=== PATIENT | female | born 1970 | race Caucasian/White ===

== ENCOUNTER → 2016-11-29 | Outpatient (CLI) | payer MEDICAID ==
[~2016-11-29] MED LIST: BUPROPION HYDR150 M1 PO; CITALOPRAM20 MG PO; MACROBID 100MG100 MG PO; MELOXICAM15 MG PO; MIRALAX(PO17 GM/1 PA PO; NEURONTIN 300M300 MG PO; NIASPAN500 MG PO; OXYCODONE HCL15 MG PO; TRAMADOL 50MG T50 MG PO
--- NOTE | 2016-12-02 14:44 | RADIOLOGY REPORT PS360 ---
DIG MAMM-SCREEN CAROL W/CAD CAD Screening COMPARISON: Digital mammograms 04/13/2015 and additional problem-solving views 05/24/2015 and analog mammograms 04/29/2013 from [place], [place] INDICATION: There is no personal or family history of breast cancer TECHNIQUE: Standard CC and MLO images were obtained. R2 CAD reviewed. FINDINGS: There is a diffusely dense and heterogenic parenchymal pattern somewhat lessening the sensitivity of mammography. Fibroglandular elements are slightly more prominent right breast than left and this is been noted previously. There is a stable collection of microcalcifications upper outer quadrant right breast in addition to a couple of benign-appearing calcifications inner quadrants of each breast. There is no suspicious lesion and there are no suspicious microcalcifications. IMPRESSION: Stable exam with rather dense heterogenic parenchyma pattern and no suspicious lesion seen recommend yearly follow-up BI-RADS CATEGORY: 2_Benign RECOMMENDED FOLLOWUP: 12M 12 MONTH FOLLOW-UP (A letter has been sent to the patient regarding results of the study.)
== END ==
LOC: RAD 08:27
DX: Z12.31 Encounter for screening mammogram for malignant neoplasm of breast (principal)
CPT/HCPCS: G0202

== ENCOUNTER 2017-07-11 14:33 | Inpatient (IN) | payer MEDICAID ==
[~2017-07-11] VITALS: Ht 152.4 cm; Wt 65.4 kg
[2017-07-11 15:19] LABS: UTC STREP SCREEN NOT DETECTED (NOTDETECTED)
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
[2017-07-11 15:37] LABS: LYMPH # 1.7 K/mm3 (0.7-4.5); LYMPH % 6.9 % (10-50.0)
--- NOTE | 2017-07-11 15:47 | RADIOLOGY REPORT PS360 ---
CHEST(2 VIEWS-NOT PORTABLE) HISTORY: Cough and fever CONGESTION ORDERING PHYSICIAN: MARQUITA VILLEDA APRN PATIENT AGE: 47 years COMPARISON: None available FINDINGS: Unremarkable cardiovascular structures. There is consolidation involving the right lower lobe is nearly consistent with pneumonia. No obvious effusion. The left lung is clear. There is chronic wedge appearing compression changes of L2 with kyphosis as noted on prior MRI of 02/21/2012 with exaggerated thoracic lordosis. IMPRESSION: Right lower lobe pneumonia
[2017-07-11 16:49] VITALS: BP 133/84
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
[2017-07-11 17:11] VITALS: BP 133/84
[2017-07-11] MEDS ORDERED: CLONAZEPAM0.5 M1 PO (17:28)
[2017-07-11 19:26] VITALS: BP 130/77
[2017-07-11 20:00] VITALS: BP 141/92
[2017-07-11 20:25] LABS: NEUTROPHILS 81 % (42-76)
[2017-07-12] VITALS (8 sets, daily range): BP systolic 105–148; BP diastolic 48–92
--- NOTE | 2017-07-12 06:58 | ACUTE CARE PROGRESS NOTE (QUA) ---
Progress Notes Subjective Date 07/12/17 Time 0657 Note Patient reports feeling better. She's not had a fever since she was in the urgent treatment clinic. She is awake and alert. Lungs have rales in the RIGHT lower and midlung best heard posteriorly and laterally. Heart is tachycardic. Continue Rocephin and azithromycin for pneumonia and monitor for fevers. Objective Findings Laboratory Tests 07/11/17 1515: Sodium 132 L, Potassium 3.7, Chloride 98, Carbon Dioxide 23, BUN 15, Creatinine 0.7, Estimated Creat Clear 101, Estimated GFR (MDRD) 90, Glucose 112 H, Calcium 8.6, Total Bilirubin 0.4, AST 24, ALT 25, Alkaline Phosphatase 81, Total Protein 7.8, Albumin 3.1 L, Globulin 4.7 H, Albumin/Globulin Ratio 0.7 L, WBC 24.0 *H , RBC 4.30, Hgb 14.0, Hct 41.5, MCV 96.5, RDW 13.5, Plt Count 357, MPV 8.0, Gran % 88.9 H, Gran # 21.3 H, Total Counted 100, Lymphocytes % 6.9 L, Monocytes % 2.3, Eosinophils % 1.7, Basophils % 0.2, Neutrophils 81 H, Band Neutrophils 17 H, Lymphocytes (Manual) 2 L, Lymphocytes # 1.7, Monocytes # 0.6, Eosinophils # 0.4, Basophils # 0.1, RBC/WBC/PLT Morphology NORMAL, Toxic Granulation SL., Platelet Estimate NORMAL, Rouleaux SL., PUBS MCHC 33.6, MCH 32.5 H, Mycoplasma pneumon IgM NON-REACTIVE 07/11/17 1450: Influenza Type A Ag NOT DETECTED, Influenza Type B Ag NOT DETECTED, Group A Strep Screen NOT DETECTED Microbiology 07/11 1905 BLOOD: Anaerobic Blood Culture - RECD 07/11 1905 BLOOD: Aerobic Blood Culture - RECD 07/11 1840 SPUTUM: Sputum Culture - RES 07/11 1840 SPUTUM: Gram Stain - RES 07/11 145 THROAT: Group A Streptococcus Screen/Cult - COMP 07/11 905 BLOOD: Anaerobic Blood Culture - RECD 07/11 905 BLOOD: Aerobic Blood Culture - RECD Last VS-Temp:98.2 B/P:105/48 Pulse:112 Resp:24 SaO2:88 ROOM AIR Last weight lbs:144 oz:4 K.431 Method:Bed Scales Assessment/Plan Problem List 1. Right lower lobe pneumonia Qualifiers: Pneumonia type: due to unspecified organism Qualified Code: J18.1 - Lobar pneumonia, unspecified organism 2. Fever and chills 3. Leukocytosis Qualifiers: Leukocytosis type: unspecified Qualified Code: D72.829 - Elevated white blood cell count, unspecified 4. Acquired asplenia This inpt stay is expected to cross 2 MNs from start of care Yes at 0658
[2017-07-12 07:04] LABS: LYMPH # 3.1 K/mm3 (0.7-4.5); LYMPH % 13.8 % (10-50.0)
[2017-07-12 07:52] LABS: HEMOGLOBIN 12.3 g/dL (12.2-16.2)
--- NOTE | 2017-07-12 09:21 | PHARMACY CLINIC NOTE ---
Patient Demographics Patient Demographics Admission date: 07/11/17 Date: 07/12/17 Time: 0920 Allergies Coded Allergies: Iodinated Contrast- Oral and IV Dye (Iodinated Contrast Media - IV Dye) (I- ITCHING 01/30/16) HEIGHT- FT: 5 IN: 0.00 K.431 VTE General Information Labs: Laboratory Tests 07/12 07/11 0630 1515 Hematology Hgb (12.2 - 16.2 g/dL) 12.3 14.0 Hct (37.0 - 47.0 %) 36.7 L 41.5 Plt Count (142 - 424 K/mm3) 363 357 Disclaimer The following section includes nursing documentation that has been pulled in for pharmacy review. Patient's VTE score: 4 Patient's VTE Risk: LOW RISK Clinical trial participant? No VTE prophylaxis [id number] VTE prophylaxis ordered? Yes Type of prophylaxis/treatment: ALEXI at 0920
[2017-07-12] MEDS ORDERED: CYCLOBENZAPRINE10 M1 PO (11:20)
[2017-07-12] MEDS ORDERED: BUDEPRION XL150 MG PO (11:21)
[2017-07-12] MEDS ORDERED: VRAYLAR3 MG PO (11:22)
[2017-07-12] MEDS ORDERED: QUETIAPINE FUMA50 M1 PO (11:22)
[2017-07-12] MEDS ORDERED: MONTELUKAST SOD10 MG PO (11:23)
[2017-07-13] VITALS (8 sets, daily range): BP systolic 121–147; BP diastolic 78–86
[2017-07-13 06:10] LABS: HEMOGLOBIN 11.7 g/dL (12.2-16.2); LYMPH # 1.9 K/mm3 (0.7-4.5); LYMPH % 13.9 % (10-50.0)
--- NOTE | 2017-07-13 06:50 | ACUTE CARE PROGRESS NOTE (QUA) ---
Progress Notes Subjective Date 07/13/17 Time 0648 Note Patient has no complaints. She admits to mild dyspnea. Cough is productive of white and yellow sputum. She did spike a fever yesterday afternoon to 103. Antibiotics were changed when she spiked fever. When I entered the room the patient was sleeping her respirations were slightly increased but she is not in any distress. Once awakening respiratory rate slows down. Lungs have rales at the RIGHT base with rhonchi on expiration bilaterally. Heart has regular rate and rhythm. Continue broad-spectrum antibiotic coverage. Should patient spike a temp again blood cultures will be drawn. Objective Findings Last VS-Temp:98.5 B/P:145/86 Pulse:123 Resp:20 SaO2:96 ROOM AIR Last weight lbs:144 oz:4 K.431 Method:Bed Scales Laboratory Tests 07/13/17 0600: WBC 13.9 H, RBC 3.69 L, Hgb 11.7 L, Hct 35.7 L, MCV 96.9, RDW 14.1, Plt Count 370, MPV 8.0, Gran % 80.2 H, Gran # 11.2 H, Lymphocytes % 13.9, Monocytes % 4.9, Eosinophils % 0.7, Basophils % 0.3, Lymphocytes # 1.9, Monocytes # 0.7, Eosinophils # 0.1, Basophils # 0.1, PUBS MCHC 32.9, MCH 31.9 H Assessment/Plan Problem List 1. Right lower lobe pneumonia Qualifiers: Pneumonia type: due to unspecified organism Qualified Code: J18.1 - Lobar pneumonia, unspecified organism 2. Fever and chills 3. Leukocytosis Qualifiers: Leukocytosis type: unspecified Qualified Code: D72.829 - Elevated white blood cell count, unspecified 4. Acquired asplenia Patient condition Stable Plan: continue current care This inpt stay is expected to cross 2 MNs from start of care Yes at 0650
--- NOTE | 2017-07-13 08:58 | CONSULT NOTE ---
Pharmacokinetic Consult Date of consult: 07/13/17 Time of consult: 856 Referring provider: DR. SHETTY Reason for consult: VANCOMYCIN DOSING Allergies: Coded Allergies: Iodinated Contrast- Oral and IV Dye (Iodinated Contrast Media - IV Dye) (I- ITCHING 01/30/16) Home Medications: Reported Medications OXYCODONE HCL (Oxycodone Hcl) 5 MG PO BID Clonazepam (Clonazepam 0.5MG) 0.5 MG PO TID Cyclobenzaprine Hcl 10 MG PO TID #30 TAB Bupropion Hcl (Bupropion XL) 150 MG PO DAILY #30 TAB Quetiapine Fumarate 50 MG PO DAILY #30 TAB Cariprazine Hydrochloride (Vraylar) 3 MG PO DAILY #30 TAB Montelukast Sodium 10 MG PO DAILY #30 TAB Meloxicam (Meloxicam 15MG) 15 MG PO BID NITROFURANTOIN (Nitrofurantoin) 100 MG PO BID POLYETHYLENE GLYCOL (Miralax) 17 GM PO DAILY CITALOPRAM HYDROBROMIDE (Citalopram HBr) 20 MG PO DAILY Height (feet): 5 Height (inches): 0.00 Medical History: CAD? No Angina: No [place]: No Hypertension? No Hyperlipidemia? No CHF? No DVT? No PE? No COPD? No Asthma? No Anemia? No GERD? No Gastric ulcers? Yes GI Bleed? No Hernia? No Thyroid Problems? No Hypothyroidism? No CVA? No Seizures? No Diabetes? No Renal Insuffiency? No UTI? No Stones? No BPH? No GB Disease: No Nephritic Syndrome? No Asplenia? No Arthritis? Yes Migraines? Yes TB? No Anxiety? Yes Depression? Yes Cancer? No Labs: Laboratory Tests 07/13/17 0600: WBC 13.9 H, RBC 3.69 L, Hgb 11.7 L, Hct 35.7 L, MCV 96.9, RDW 14.1, Plt Count 370, MPV 8.0, Gran % 80.2 H, Gran # 11.2 H, Lymphocytes % 13.9, Monocytes % 4.9, Eosinophils % 0.7, Basophils % 0.3, Lymphocytes # 1.9, Monocytes # 0.7, Eosinophils # 0.1, Basophils # 0.1, PUBS MCHC 32.9, MCH 31.9 H Microbiology 07/13 0751 BLOOD: Anaerobic Blood Culture - RECD 07/13 751 BLOOD: Aerobic Blood Culture - RECD 07/13 745 BLOOD: Anaerobic Blood Culture - RECD 07/13 745 BLOOD: Aerobic Blood Culture - RECD Problem List: 1. Right lower lobe pneumonia Plan: BASED ON PATIENT FACTORS, RECOMMEND VANCOMYCIN 1250 MG IV ONCE, FOLLOWED BY VANCOMYCIN 1 GM IV Q12H. WILL OBTAIN VANCOMYCIN TROUGH LEVEL PRIOR TO 4TH DOSE. PHARMACY WILL FOLLOW DAILY AND ADJUST APPROPRIATE. at 0858
--- NOTE | 2017-07-13 10:53 | RADIOLOGY REPORT PS360 ---
CHEST(2 VIEWS-NOT PORTABLE) HISTORY: Low O2 saturation. Follow-up pneumonia PA/LAT CXR ORDERING PHYSICIAN: Armond Chandra MD PATIENT AGE: 47 years COMPARISON: None available FINDINGS: The cardiomediastinal silhouette and pulmonary vascularity are within normal limits. There is diffuse bilateral pneumonia in left upper lobe, left lower lobe, right upper lobe, and right lower lobe. This is most extensive in the right lower lobe. There is a small right pleural effusion. The pneumonia has markedly progressed since the previous exam. There is reversal of the thoracic kyphosis with severe wedging of L2 as before. IMPRESSION: 1. Bilateral pneumonia which is worsened in the interval with small right effusion
[2017-07-13 20:52] LABS: ARTERIAL ABE -20.8 MMOL/L (-2.4-+2.3); ARTERIAL TCO2 6.9 MMOL/L (23-27); OXYGEN 95; PRESSURE SUPPORT 10; VENT RATE 20
--- NOTE | 2017-07-13 21:57 | ACUTE CARE PROGRESS NOTE (QUA) ---
Progress Notes Subjective Date 07/13/17 Time 2152 Note Late this evening patient's condition took a turn for the worse. Patient had developed an oxygen requirement and had been placed on 4 L of oxygen via nasal cannula. She had become tachypneic. Earlier in the day chest x-ray had showed worsening pneumonia and vancomycin had been added to her cefepime and Levaquin. Patient went from nasal cannula oxygen to been placed on facemask. She acutely deteriorated. She was noted to have frothy sputum which was felt to be pulmonary edema by staff and over 500 ML's of fluid was suctioned from the patient. She is [place] been given Lasix as well. Patient was intubated and placed on mechanical ventilation. Patient is lightly sedated. She responds to verbal stimulus. Lungs have bilateral rhonchi. Heart is tachycardic. Abdomen is soft. Patient is stable on mechanical ventilation at this time. I have spoken with her family. I will seek transfer to intensive care unit under the care of the manufacturing sales representative for the patient. Patient is aware. Objective Findings Last VS-Temp:98.5 B/P:142/81 Pulse:105 Resp:18 SaO2:94 ROOM AIR Last weight lbs:144 oz:4 K.431 Method:Bed Scales Laboratory Tests 07/13/172049: ABG pH 7.25 L, ABG pCO2 (Temp Corrct 15.0 L, ABG pO2 (Temp Correct 77.0 L, ABG HCO3 6.4 L, ABG Total CO2 6.9 L, ABG O2 Sat (Calculated) 91.8, ABG Base Excess -20.8 L, Vent Rate 20, Pressure Support 10, Blood Gas Comments L/R 07/13/17 0600: WBC 13.9 H, RBC 3.69 L, Hgb 11.7 L, Hct 35.7 L, MCV 96.9, RDW 14.1, Plt Count 370, MPV 8.0, Gran % 80.2 H, Gran # 11.2 H, Lymphocytes % 13.9, Monocytes % 4.9, Eosinophils % 0.7, Basophils % 0.3, Lymphocytes # 1.9, Monocytes # 0.7, Eosinophils # 0.1, Basophils # 0.1, PUBS MCHC 32.9, MCH 31.9 H Microbiology 07/13 0751 BLOOD: Anaerobic Blood Culture - RECD 07/13 0751 BLOOD: Aerobic Blood Culture - RECD 07/13 0745 BLOOD: Anaerobic Blood Culture - RECD 07/13 0745 BLOOD: Aerobic Blood Culture - RECD Assessment/Plan Problem List 1. Right lower lobe pneumonia Qualifiers: Pneumonia type: due to unspecified organism Qualified Code: J18.1 - Lobar pneumonia, unspecified organism 2. Fever and chills 3. Leukocytosis Qualifiers: Leukocytosis type: unspecified Qualified Code: D72.829 - Elevated white blood cell count, unspecified 4. Acquired asplenia 5. Acute respiratory failure Patient condition Guarded Plan: continue current care, arrange facility transfer This inpt stay is expected to cross 2 MNs from start of care Yes
--- NOTE | 2017-07-13 22:06 | Procedure Note ---
Bedside procedures Intubation Date of procedure: 07/13/17 Time of procedure: 2104 Intubation: Risks/benefits discussed with pt/guardian? No Time of Intubation 2101 Intubation Method orotracheal Tube Size (cm) 7.0 Medications Etomidate mg- (20mg) Breath Sounds after Intubation: equal Intubation Complications no complications Post Intubation Xray Yes Additional information: She was turned over to me, by Dr Price, during a rapid response, up on the floor , in patient's room. Patient was in respiratory distress, however a trial of BiPAP was felt that there is medically necessary, prior to my arrival. After a reasonable time, the patient's pulse oximetry improved modestly, however she remained in distress, tachypneic and tachycardic, with a respiratory rate of 40 and heart rate of 170, decision was made to already intubated the patient. Procedure went without any complications. ABG reveals severe respiratory acidosis and metabolic acidosis, with obvious sepsis and progression of pneumonia from time of pneumonia (reviewed latest chest x-ray obtained earlier today). Post intubation chest x-ray reveals ET tube above the kendrick, infiltrates, RIGHT upper long consistent with worsening pneumonia. Vocal cords visualized during intubation, ET tube placed through the vocal cords. ET tube fogging after intubation, bilateral breath sounds audible in both lungs, CO2 detector turning yellow, confirming correct placement. Patient turned over to Dr. Rojas, walking in the room, upon completion of procedure. Patient remains in critical condition at this time. Some improvement of vital signs was noticed after intubation. Given the patient's history of asplenia she is at risk for sepsis, , and multiple other complications. Instructed the nurse upon my departure from the room to obtain a complete blood count, complete metabolic panel, ABG, a set of cardiac enzymes, and reported them to Dr. Rojas. Later on, Dr. Rojas transfer the patient to [facility] in [place]. at [id number]
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
--- NOTE | 2017-07-13 22:31 | RADIOLOGY REPORT PS360 ---
CHEST-PORTABLE HISTORY: Respiratory failure, pneumonia TUBE PLACEMENT ORDERING PHYSICIAN: Armond Chandra MD PATIENT AGE: 47 years COMPARISON: Same day FINDINGS: Endotracheal tube has been inserted. The tip is 1.4 cm above the kendrick slightly low and may be withdrawn 2 to 3 cm. Nasogastric tube has also been inserted. The tip is not visible but is below the GE junction. There is diffuse bilateral pneumonia more extensive on the right with right effusion. The lungs are somewhat obscured by the overlying artifact. IMPRESSION: 1. Slightly low position of endotracheal tube. 2. Diffuse bilateral pneumonia with right effusion
[2017-07-13 23:17] LABS: ARTERIAL ABE -5.4 MMOL/L (-2.4-+2.3); ARTERIAL PO2 83.6 MMHG (80-100); ARTERIAL TCO2 20.6 MMOL/L (23-27)
[2017-07-13 23:18] LABS: ALLEN'S TEST Y; OXYGEN 99; PRESSURE SUPPORT 10; VENT RATE 16
== END 2017-07-13 23:23 | disposition short-term general hospital (02) | DRG 208 ==
LOC: ER 14:33 → UTC 14:33 → 2ND 16:10
PROVIDERS: Family Medicine; Internal Medicine Adolescent Medicine; Nurse Practitioner Family
PROC: 0BH17EZ Insertion of Endotracheal Airway into Trachea, Via Natural or Artificial Opening (ICD-10-PCS; principal; 2017-07-13)
PROC: 5A1935Z Respiratory Ventilation, Less than 24 Consecutive Hours (ICD-10-PCS; principal; 2017-07-13)
DX: J18.9 Pneumonia, unspecified organism (principal); J96.00 Acute respiratory failure, unspecified whether with hypoxia or hypercapnia; A41.9 Sepsis, unspecified organism; E87.2 Acidosis; Z72.0 Tobacco use; Z90.81 Acquired absence of spleen; B19.20 Unspecified viral hepatitis C without hepatic coma; R06.00 Dyspnea, unspecified
CPT/HCPCS: J0456; J2543; J2704; J3370